=== PATIENT | female | born 1945 | race Caucasian/White ===

== ENCOUNTER 2016-12-18 07:46 | Day surgery (SDC) | payer OTHER ==
[~2016-12-18] VITALS: Ht 149.9 cm; Wt 55.0 kg
[~2016-12-18 07:46] MED LIST: ACET325C PO; ACETAMINOPHEN/CODEINE 300-30 MG TABLET PO PRN; ALBU8HFA4 IH; ALEN70TA48 PO; AMIT25TA9 PO; ASCO500 PO; ASPI81 PO; AcetaZOLAMIDE 250 MG TABLET PO ONE; BACL10TA PO; CALC-1038 PO; CELE200 PO; CLOT10T PO; CYCLOPENTOLATE HCL 2% 2 ML OPHTHALMIC SOLUTION ONE; DICL2100G TP; DICLOFENAC SODIUM 0.1% 2.5 ML OPHTHALMIC SOLUTION ONE; DOCU250C91 PO; FENO54TA6 PO; FERR-89 PO; FLUT16H NASAL; FOLI1 PO; HYDR200T4 PO; INSLAN SQ; INSNOV SQ; L.AC1CAP6 PO; LORA0.5T2 PO; LORA10TA7 PO; METF500T4 PO; MOME13HF IH; MOXIFLOXACIN HCL 0.5% 3 ML OPHTHALMIC SOLUTION ONE; MULT1TAB66 PO; NAPR-58 PO; OMEP20 PO; PHENYLEPHRINE HCL 2.5% 2 ML OPHTHALMIC SOLUTION ONE; RINGERS SOLUTION,LACTATED 500 ML IV ONE; SIMV-260 PO; TETRACAINE HCL/PF 0.5% 4 ML OPHTHALMIC SOLUTION ONE; TETRACAINE HCL/PF 0.5% 4 ML OPHTHALMIC SOLUTION OS ONE; VITAD1000 PO; [UNRECOGNIZED DRUG - CODE] TP
[2016-12-18] MEDS ORDERED: HYALURONATE SODIUM 12 MG/ML 0.8 ML SYRINGE IO ONE (07:47)
[2016-12-18] MEDS ORDERED: MIDAZOLAM HCL 2 MG/2 ML VIAL IVP ONE (07:47)
[2016-12-18] MEDS ORDERED: LIDOCAINE HCL/PF 1% 2 ML VIAL IM ONE (07:47)
[2016-12-18] MEDS ORDERED: FentaNYL CITRATE-PF 100 MCG/2 ML VIAL IVP ONE (07:47)
[2016-12-18] MEDS ORDERED: EPINEPHrine 1:1,000 [1 MG/ML] AMP IM ONE (07:47)
[2016-12-18] MEDS ORDERED: POVIDONE-IODINE 10% 15 ML SOLUTION UD TP ONE (07:47)
[2016-12-18] MEDS ORDERED: HYALURONATE SOD/CHONDROITIN SOD 0.5 ML VIAL IO ONE (07:47)
[2016-12-18] MEDS ORDERED: BRIMONIDINE TARTRATE 0.15% 5 ML OPHTHALMIC SOLUTION OS ONE (07:47)
[2016-12-18] MEDS ORDERED: TETRACAINE HCL VISCOUS 0.5% 5 ML OPHTHALMIC SOLUTION OS ONE (07:47)
[2016-12-18] MEDS: DICLOFENAC SODIUM 0.1% 2.5 ML OPHTHALMIC SOLUTION OS SCH ×3 (08:26→08:45)
[2016-12-18] MEDS: CYCLOPENTOLATE HCL 2% 2 ML OPHTHALMIC SOLUTION OS SCH ×3 (08:26→08:35)
[2016-12-18] MEDS: PHENYLEPHRINE HCL 2.5% 2 ML OPHTHALMIC SOLUTION OS SCH ×3 (08:27→08:35)
[2016-12-18] MEDS: MOXIFLOXACIN HCL 0.5% 3 ML OPHTHALMIC SOLUTION OS SCH ×3 (08:27→08:45)
[2016-12-18 08:33] LABS: GLUCOMETER DEV NAME(LOC) SDS 5; GLUCOSE,POINT OF CARE 199 MG/DL (70-110)
[2016-12-18] MEDS ORDERED: RINGERS SOLUTION,LACTATED 500 ML IV ONE (09:45)
[2016-12-18] MEDS ORDERED: AcetaZOLAMIDE 250 MG TABLET ONE (10:45)
== END 2016-12-18 11:15 | disposition home or self-care (01) ==
LOC: SURGERY 07:46
PROVIDERS: ATTEND Ophthalmology
DX: E11.36 Type 2 diabetes mellitus with diabetic cataract (principal); H25.12 Age-related nuclear cataract, left eye; M06.9 Rheumatoid arthritis, unspecified; J45.909 Unspecified asthma, uncomplicated; Z88.8 Allergy status to other drugs, medicaments and biological substances; Z79.4 Long term (current) use of insulin; Z98.890 Other specified postprocedural states
CPT/HCPCS: 66984; 82962; 93005; C1780; J0171; J2250; J3010; J3490 ×2; J7120